=== PATIENT | female | born 1950 | race Two or more races ===

== ENCOUNTER → 2017-12-19 | Emergency (ER) | payer OTHER ==
[~2017-12-19] VITALS: Ht 165.1 cm; Wt 81.6 kg
[~2017-12-19] MED LIST: SYNTHROID100 MCG PO
== END | disposition left against medical advice (07) ==
LOC: ER 22:57
DX: Z53.20 Procedure and treatment not carried out because of patient's decision for unspecified reasons (principal)

== ENCOUNTER 2018-11-28 13:08 | Outpatient (CLI) | payer OTHER | END 2018-11-28 13:16 | disposition home or self-care (01) | LOC: RAD 501 13:08 | DX: M54.5 Low back pain (principal); M54.6 Pain in thoracic spine ==

== ENCOUNTER → 2019-02-19 | Outpatient (CLI) | payer OTHER | END | disposition home or self-care (01) | LOC: NUCLEAR 10:00 | DX: M81.0 Age-related osteoporosis without current pathological fracture (principal) ==

== ENCOUNTER 2019-09-14 06:22 | Emergency (ER) | payer OTHER ==
[~2019-09-14] VITALS: Ht 165.1 cm; Wt 81.6 kg
[2019-09-14] MEDS ORDERED: CRESTOR20 MG (06:31)
== END 2019-09-14 19:32 | disposition home or self-care (01) ==
LOC: ER 06:22
DX: K57.30 Diverticulosis of large intestine without perforation or abscess without bleeding (principal); R10.84 Generalized abdominal pain

== ENCOUNTER 2021-01-26 11:54 | Outpatient (CLI) | payer OTHER ==
[~2021-01-26 11:54] MED LIST changes: +CRESTOR20 MG
== END 2021-01-26 14:12 | disposition home or self-care (01) ==
LOC: NUCLEAR 11:54
PROVIDERS: ATTEND Internal Medicine Cardiovascular Disease
DX: I87.2 Venous insufficiency (chronic) (peripheral) (principal)

== ENCOUNTER 2021-12-14 11:50 | Outpatient (CLI) | payer OTHER | END 2021-12-14 11:51 | disposition home or self-care (01) | LOC: RAD 11:50 | PROVIDERS: ATTEND Physical Medicine & Rehabilitation | DX: M54.2 Cervicalgia (principal) ==

== ENCOUNTER 2023-01-27 | Emergency (ER) | payer OTHER ==
[~2023-01-27] VITALS: Ht 165.1 cm; Wt 86.2 kg
== END 2023-01-27 04:15 | disposition home or self-care (01) ==
LOC: ER
DX: U07.1 COVID-19 (principal); J06.9 Acute upper respiratory infection, unspecified; I10 Essential (primary) hypertension

== ENCOUNTER 2023-09-25 11:23 | Outpatient (CLI) | payer OTHER | END 2023-09-25 11:38 | disposition home or self-care (01) | LOC: MRI 11:23 | PROVIDERS: ATTEND Physical Medicine & Rehabilitation | DX: M54.2 Cervicalgia (principal); M54.12 Radiculopathy, cervical region | CPT/HCPCS: 72141 ==

== ENCOUNTER 2023-10-16 11:11 | Outpatient (CLI) | payer OTHER | END 2023-10-16 11:14 | disposition home or self-care (01) | LOC: RAD 11:11 | PROVIDERS: ATTEND Physical Medicine & Rehabilitation | DX: M54.50 Low back pain, unspecified (principal) ==

== ENCOUNTER 2024-11-05 12:59 | Outpatient (CLI) | payer OTHER | END 2024-11-05 13:01 | disposition home or self-care (01) | LOC: RAD 12:59 | PROVIDERS: ATTEND Physical Medicine & Rehabilitation | DX: M76.61 Achilles tendinitis, right leg (principal); M76.62 Achilles tendinitis, left leg ==

== ENCOUNTER 2024-11-09 17:01 | Emergency (ER) | payer OTHER ==
[~2024-11-09] VITALS: Ht 165.1 cm; Wt 84.4 kg
== END 2024-11-09 18:45 | disposition home or self-care (01) ==
LOC: ER 17:04
DX: S99.811A Other specified injuries of right ankle, initial encounter (principal); X58.XXXA Exposure to other specified factors, initial encounter; Y93.89 Activity, other specified; Y92.89 Other specified places as the place of occurrence of the external cause; Y99.8 Other external cause status; E03.8 Other specified hypothyroidism

== ENCOUNTER 2024-11-10 09:43 | Outpatient (CLI) | payer OTHER | END 2024-11-10 09:44 | disposition home or self-care (01) | LOC: NUCLEAR 09:43 | PROVIDERS: ATTEND Physical Medicine & Rehabilitation | DX: I82.409 Acute embolism and thrombosis of unspecified deep veins of unspecified lower extremity (principal); I87.2 Venous insufficiency (chronic) (peripheral) ==

== ENCOUNTER 2025-01-11 13:30 | Outpatient (CLI) | payer OTHER | END 2025-01-11 13:31 | disposition home or self-care (01) | LOC: RAD 13:30 | PROVIDERS: ATTEND Physical Medicine & Rehabilitation | DX: M17.11 Unilateral primary osteoarthritis, right knee (principal); M17.12 Unilateral primary osteoarthritis, left knee ==

== ENCOUNTER 2025-01-14 14:10 | Outpatient (CLI) | payer OTHER | END 2025-01-14 14:21 | disposition home or self-care (01) | LOC: MRI 14:10 | PROVIDERS: ATTEND Physical Medicine & Rehabilitation | DX: M87.852 Other osteonecrosis, left femur (principal) | CPT/HCPCS: 73721 ==

== ENCOUNTER 2025-01-20 15:47 | Outpatient (CLI) | payer OTHER | END 2025-01-20 15:48 | disposition home or self-care (01) | LOC: MRI 15:47 | PROVIDERS: ATTEND Physical Medicine & Rehabilitation | DX: M17.11 Unilateral primary osteoarthritis, right knee (principal); M25.561 Pain in right knee | CPT/HCPCS: 73721 ==

== ENCOUNTER 2025-06-23 12:53 | Outpatient (CLI) | payer OTHER | END 2025-06-23 13:08 | disposition home or self-care (01) | LOC: MRI 12:53 | PROVIDERS: ATTEND Physical Medicine & Rehabilitation | DX: M54.50 Low back pain, unspecified (principal); M48.061 Spinal stenosis, lumbar region without neurogenic claudication | CPT/HCPCS: 72148 ==